=== PATIENT | female | born 1935 | race Caucasian/White ===

== ENCOUNTER 2020-11-07 22:30 | Inpatient (IN) | payer MEDICARE ==
[~2020-11-07] VITALS: Ht 167.6 cm; Wt 61.2 kg
[~2020-11-07 22:30] MED LIST: ALPRAZOLAM0.5 MG PO; AMITIZA24 MCG PO; AUGMENTIN TAB875 MG PO; CLARITIN10 M2 PO; COLACE 100MG C100 MG PO; COREG 3.125M3.125 MG PO; DITROPAN 5 MG TA5 MG PO; FEROSUL325 MG PO; FLUZONE QU60 MCG/015 IM; HALDOL 0.5 MG0.5 MG PO; LASIX 40 MG TAB40 MG PO; LEVAQUIN500 MG PO; NAMENDA XR21 MG PO; NEURONTIN 400400 MG PO; POTASSIUM CHLO10 ME2 PO; PROTONIX40 MG PO; RISPERDAL0.5 MG PO; SIMVASTATIN20 MG PO; TRAMADOL HCL50 MG PO; VITAMIN B-12500 MCG PO; VITAMIN D50000 UNIT PO; ZOFRAN4 MG PO
[2020-11-07 23:26] LABS: HEMOGLOBIN 12.1 gm/dl (12.3-15.3); RED BLOOD COUNT 4.09 M/UL (4.00-5.10); WHITE BLOOD COUNT 15.7 K/UL (4.5-11.0)
[2020-11-07 23:41] LABS: BUN/CREATININE RATIO 23 (0-10)
[2020-11-08] MEDS ORDERED: LASIX40 MG PO (08:35)
[2020-11-08] MEDS ORDERED: COREG3.125 MG PO (08:35)
[2020-11-08] MEDS ORDERED: SEROQUEL50 MG PO (08:35)
[2020-11-08] MEDS ORDERED: COLACE100 MG PO (08:36)
[2020-11-08] MEDS ORDERED: MEGACE TAB 20 M20 MG PO (08:36)
[2020-11-08] MEDS ORDERED: ARICEPT5 MG PO (08:37)
[2020-11-08] MEDS ORDERED: VITAMIN D21250 MCG PO (08:37)
[2020-11-08] MEDS ORDERED: VITAMIN B-12500 MCG PO (08:38)
[2020-11-08] MEDS ORDERED: KLOR-CON 1010 MEQ PO (08:38)
[2020-11-08] MEDS ORDERED: METAMUCIL PACK3.4 GM PO (08:43)
[2020-11-08] MEDS ORDERED: ALPRAZOLAM0.5 MG PO (09:56)
[2020-11-08] MEDS ORDERED: ABILIFY 2 MG TAB2 MG PO (09:57)
--- NOTE | 2020-11-08 16:37 | NUR ---
PT ARRIVED ON THE FLOOR AT 1624 AND WAS TAKEN FOR SURGERY AT 1631. PT ASSESSMENT PART ONE WAS COMPLETED BY THE ADMISSION NURSE AND PART TWO WILL BE COMPLETED ONCE THE PT RETURNS FROM SURGERY.
[2020-11-09 04:11] LABS: HEMOGLOBIN 11.4 gm/dl (12.3-15.3); RED BLOOD COUNT 3.89 M/UL (4.00-5.10); WHITE BLOOD COUNT 13.3 K/UL (4.5-11.0)
[2020-11-09 04:50] LABS: BUN/CREATININE RATIO 18 (0-10)
[2020-11-10 04:29] LABS: HEMOGLOBIN 10.3 gm/dl (12.3-15.3); RED BLOOD COUNT 3.54 M/UL (4.00-5.10); WHITE BLOOD COUNT 14.1 K/UL (4.5-11.0)
[2020-11-10 04:52] LABS: BUN/CREATININE RATIO 18 (0-10)
--- NOTE | 2020-11-10 17:15 | NUR ---
ORDERED A URINE SPECIMEN AND PT IS INCONTINENT. GAVE APPROVAL TO IN AND OUT CATH HER TO OBATIN SAMPLE.
[2020-11-11 03:38] LABS: HEMOGLOBIN 9.2 gm/dl (12.3-15.3); RED BLOOD COUNT 3.2 M/UL (4.00-5.10); WHITE BLOOD COUNT 12.3 K/UL (4.5-11.0)
[2020-11-11 04:22] LABS: BUN/CREATININE RATIO 20 (0-10)
[2020-11-12 05:01] LABS: HEMOGLOBIN 9.1 gm/dl (12.3-15.3); RED BLOOD COUNT 3.08 M/UL (4.00-5.10); WHITE BLOOD COUNT 10.1 K/UL (4.5-11.0)
[2020-11-12 05:13] LABS: BUN/CREATININE RATIO 13 (0-10)
[2020-11-13 02:54] LABS: HEMOGLOBIN 9.6 gm/dl (12.3-15.3); RED BLOOD COUNT 3.26 M/UL (4.00-5.10); WHITE BLOOD COUNT 9.8 K/UL (4.5-11.0)
[2020-11-13 03:12] LABS: BUN/CREATININE RATIO 16 (0-10)
[2020-11-14 03:09] LABS: HEMOGLOBIN 10.7 gm/dl (12.3-15.3); RED BLOOD COUNT 3.7 M/UL (4.00-5.10); WHITE BLOOD COUNT 14.3 K/UL (4.5-11.0)
[2020-11-14 08:35] LABS: BUN/CREATININE RATIO 15 (0-10)
[2020-11-15 04:07] LABS: HEMOGLOBIN 9.4 gm/dl (12.3-15.3); WHITE BLOOD COUNT 13.2 K/UL (4.5-11.0)
[2020-11-15 04:17] LABS: RED BLOOD COUNT 3.3 M/UL (4.00-5.10)
[2020-11-15 04:34] LABS: BUN/CREATININE RATIO 25 (0-10)
[2020-11-16 05:26] LABS: HEMOGLOBIN 9.8 gm/dl (12.3-15.3); RED BLOOD COUNT 3.37 M/UL (4.00-5.10); WHITE BLOOD COUNT 11.6 K/UL (4.5-11.0)
[2020-11-16 05:47] LABS: BUN/CREATININE RATIO 27 (0-10)
[2020-11-17 04:16] LABS: RED BLOOD COUNT 3.45 M/UL (4.00-5.10); WHITE BLOOD COUNT 10.9 K/UL (4.5-11.0)
[2020-11-17 04:41] LABS: BUN/CREATININE RATIO 25 (0-10)
[2020-11-17] MEDS ORDERED: ALPRAZOLAM0.5 MG PO (12:17)
[2020-11-17] MEDS ORDERED: LASIX40 MG PO (12:17)
[2020-11-17] MEDS ORDERED: CEFUROXIME250 MG PO (12:17)
[2020-11-17] MEDS ORDERED: HYDROCODON-ACE1 EAC4 PO (12:17)
[2020-11-17] MEDS ORDERED: ELIQUIS 2.5 MG2.5 MG PO (12:23)
== END 2020-11-17 22:30 | disposition home health service (06) | DRG 522 ==
LOC: ER1 22:30 → M/S 11-08 03:29 → CDU 11-08 03:29 → M/S 11-08 16:17
PROVIDERS: Internal Medicine; Orthopaedic Surgery; Physician Assistant; Student in an Organized Health Care Education/Training Program; ADMIT Internal Medicine
PROC: 0SRR0J9 Replacement of Right Hip Joint, Femoral Surface with Synthetic Substitute, Cemented, Open Approach (ICD-10-PCS; principal; 2020-11-08 16:40)
DX: S72.001A Fracture of unspecified part of neck of right femur, initial encounter for closed fracture (principal); D62 Acute posthemorrhagic anemia; E87.1 Hypo-osmolality and hyponatremia; R65.10 Systemic inflammatory response syndrome (SIRS) of non-infectious origin without acute organ dysfunction; N30.00 Acute cystitis without hematuria; W18.30XA Fall on same level, unspecified, initial encounter; F03.90 Unspecified dementia, unspecified severity, without behavioral disturbance, psychotic disturbance, mood disturbance, and anxiety; I10 Essential (primary) hypertension; E78.5 Hyperlipidemia, unspecified; M19.90 Unspecified osteoarthritis, unspecified site; F41.9 Anxiety disorder, unspecified; D72.829 Elevated white blood cell count, unspecified; Z96.642 Presence of left artificial hip joint; Z90.49 Acquired absence of other specified parts of digestive tract; Y92.9 Unspecified place or not applicable; Z90.710 Acquired absence of both cervix and uterus; Z82.49 Family history of ischemic heart disease and other diseases of the circulatory system
CPT/HCPCS: 36415; 70450; 71045; 72125; 72192; 73502; 73552; 80048; 80053; 81001; 82550; 82553; 83735; 83874; 84132; 84484; 85025; 85027; 86850; 86900; 86901; 87086; 93005; 97110; 97110-GP-CQ; 97116; 97162; 97166; 97530; 97530-GP-CQ; 99285; C1776; J0690; J0696; J1100; J1170; J2270; J2704; J2710; J2795; J3010; J7030; J7120; U0002